=== PATIENT | female | born 1980 | race Caucasian/White ===

== ENCOUNTER 2017-12-31 18:24 | Emergency (ER) | payer OTHER ==
[~2017-12-31] VITALS: Ht 162.6 cm; Wt 84.4 kg
[2017-12-31 18:37] VITALS: BP 153/94
--- NOTE | 2017-12-31 18:40 | NUR ---
PT AMBULATED TO ED BED 4
--- NOTE | 2017-12-31 18:50 | NUR ---
PT C/O RT FINGER 3RD DIGIT PAIN X5 DAYS; SWOLLEN; DENIE INJURY. +ERYTHEMA. CMS INTACT. HX; DENIES RX; DENIES
--- NOTE | 2017-12-31 19:29 | NUR ---
FIRST CONTACT WITH PATIENT: PATIENT BIB FAMILY C/O RT FINGER 3RD DIGIT PAIN X5 DAYS; SWOLLEN; DENIE INJURY. +ERYTHEMA. CMS INTACT. PATIENT GCS 15, AAOX4 BREATHING IS EVEN AND UNLABORED, NO ACUTE DISTRESS NOTED. WILL CONTINUE TO MONITOR
--- NOTE | 2017-12-31 19:32 | NUR ---
Dr. Martin evaluating patient at bedside.
--- NOTE | 2017-12-31 19:59 | NUR ---
SUPPLIES ORDERED BY DR. MCINTYRE AT BEDSIDE
[2017-12-31] MEDS: ETHYL CHLORIDE 105 ML SPR TP ONE (20:38)
[2017-12-31] MEDS: IBUPROFEN 800 MG TAB PO ONE (21:10)
--- NOTE | 2017-12-31 21:30 | NUR ---
WOUND CARE PROVIDED BY EMT [place] AT BEDSIDE;PATIENT TOLERATED TX WELL
--- NOTE | 2017-12-31 21:31 | NUR ---
Patient discharged with v/s stable. Written and verbal after care instructions given and explained. Patient alert, oriented and verbalized understanding of instructions. Ambulatory with steady gait. All questions addressed prior to discharge. ID band removed. Patient advised to follow up with PMD. Rx of MOTRIN 800MG AND BACTRIM DS given. Patient educated on indication of medication including possible reaction and side effects. Opportunity to ask questions provided and answered.
[2017-12-31 21:32] VITALS: BP 136/84
== END 2017-12-31 21:31 | disposition home or self-care (01) ==
LOC: MED 18:24
DX: L03.011 Cellulitis of right finger (principal)
CPT/HCPCS: 73140; 90471; 90715; 99284; Q0092